=== PATIENT | female | born 1945 | race Caucasian/White ===

== ENCOUNTER → 2018-09-13 | Outpatient (CLI) | payer MEDICARE, OTHER | END | disposition home or self-care (01) | LOC: HKI 15:32 | DX: M19.011 Primary osteoarthritis, right shoulder (principal); I10 Essential (primary) hypertension | CPT/HCPCS: 73030; 73030-RT ==

== ENCOUNTER 2018-10-22 09:47 | Day surgery (SDC) | payer MEDICARE, OTHER ==
[~2018-10-22 09:47] MED LIST: LACTATED RINGER'S 1,000 ML IV*; LIDOCAINE 2% (SDV) 5 ML INJ; PROPOFOL 200 MG INJ
[2018-10-22] MEDS ORDERED: IOHEXOL 300MG/ML 30 ML BTL (12:17)
[2018-10-22] MEDS ORDERED: METHYLPREDNISOLONE ACET 80 MG/ML 1 ML (12:17)
[2018-10-22] MEDS ORDERED: BUPIVACAINE 0.5% (SDV) 30 ML INJ (12:24)
[2018-10-22] MEDS ORDERED: LIDOCAINE 1% (MPF) 30 ML INJ (12:24)
[2018-10-22] MEDS ORDERED: METOCLOPRAMIDE 10 MG INJ IV (12:30)
[2018-10-22] MEDS ORDERED: ONDANSETRON 4 MG INJ IV (12:30)
[2018-10-22] MEDS ORDERED: ALBUTEROL 0.083% (NEB) 2.5 MG/3 ML AMP HHN (12:30)
[2018-10-22] MEDS: BUPIVACAINE 0.5% (SDV) 30 ML INJ (12:30)
[2018-10-22] MEDS ORDERED: FENTAnyl 50 MCG/ML VIAL IV ×3 (12:30)
[2018-10-22] MEDS ORDERED: MEPERIDINE 25 MG INJ IV (12:30)
[2018-10-22] MEDS ORDERED: DIPHENHYDRAMINE 50 MG INJ IV (12:30)
[2018-10-22] MEDS: IOHEXOL 300MG/ML 30 ML BTL (12:32)
[2018-10-22] MEDS: LIDOCAINE 1% (MPF) 30 ML INJ (12:33)
[2018-10-22] MEDS: TRIAMCINOLONE ACET 40 MG/ML INJ (12:33)
[2018-10-22] MEDS ORDERED: MIDAZOLAM 1 MG/ML 2 ML INJ (12:46)
== END 2018-10-22 14:41 | disposition home or self-care (01) ==
LOC: REC 09:47 → SDS 09:47
DX: M13.811 Other specified arthritis, right shoulder (principal); I10 Essential (primary) hypertension
CPT/HCPCS: 20610; 73030-RT

== ENCOUNTER → 2018-10-30 | Outpatient (CLI) | payer MEDICARE, OTHER | END | disposition home or self-care (01) | LOC: HKI 10:23 | DX: M75.01 Adhesive capsulitis of right shoulder (principal); M19.011 Primary osteoarthritis, right shoulder | CPT/HCPCS: G0463 ==